=== PATIENT | female | born 1960 | race African-American/Black ===

== ENCOUNTER 2019-08-16 14:18 | Emergency (ER) | payer BC, OTHER ==
[~2019-08-16] VITALS: Ht 157.5 cm; Wt 72.1 kg
[2019-08-16 14:23] VITALS: BP 120/78
== END 2019-08-16 15:17 | disposition home or self-care (01) ==
LOC: ER 14:23
DX: E11.9 Type 2 diabetes mellitus without complications (principal); Z76.0 Encounter for issue of repeat prescription; Z90.710 Acquired absence of both cervix and uterus
CPT/HCPCS: 82962